=== PATIENT | female | born 1980 ===

== ENCOUNTER 2021-04-02 15:11 | Emergency (ER) | payer SELFPAY ==
[~2021-04-02 15:11] MED LIST: Amoxicillin/Clavulanate K 875-125 MG Tab ONE
[2021-04-02] MEDS: Bacitracin/Neomycin/Polymyxin B Oint 0.9 GM U/D Packet TOP ONE (15:27)
--- NOTE | 2021-04-02 15:33 | EDM.PDOC ---
ED HPI GENERAL MEDICAL PROBLEM - General Chief Complaint: Upper Extremity Injury/Pain Stated Complaint: cat scratch Time Seen by Provider: 04/02/21 15:21 Source of Information: Reports: Patient History Limitations: Reports: No Limitations - History of Present Illness INITIAL COMMENTS - FREE TEXT/NARRATIVE: jp is a 40 year old female who presents to ER with concerns of infection to her left thumb. Was scratched by her own cat on as gotten spooked by a dog. Has been washing it every 2-3 hours but today noted more swelling and purulent drainage coming from the area. Has more tenderness and redness now too. Hurts to bend and flex thumb but is able to do so. Unknown last tetanus. Onset: Gradual Duration: Day(s):, Getting Worse Location: Reports: Upper Extremity, Left Quality: Reports: Throbbing Severity: Mild Associated Symptoms: Reports: No Other Symptoms Treatments WATCH CASER: Reports: Aspirin, Dressing(s) Left Finger-Thumb Pain Score (Numeric/FACES): 3 - Related Data Allergies Allergy/AdvReac Type Severity Reaction Status Date / Time seafood Allergy Anaphylactic Uncoded 04/02/21 15:24 Shock Home Meds: Home Meds Amoxicillin/Clavulanate K [Augmentin 875-125 MG] 1 tab PO BID #16 tablet 04/02/21 [Rx] Past Medical History - Past Health History Medical/Surgical History: Denies Medical/Surgical History Social & Family History - Tobacco Use Tobacco Use Status *Q: Current Every Day Tobacco User Review of Systems - Review of Systems Review Of Systems: See Below Constitutional: Denies: Chills, Fever Eyes: Reports: No Symptoms Ears: Reports: No Symptoms Nose: Reports: No Symptoms Mouth/Throat: Reports: No Symptoms Respiratory: Reports: No Symptoms Cardiovascular: Reports: No Symptoms GI/Abdominal: Reports: No Symptoms Musculoskeletal: Reports: Hand Pain Skin: Reports: Wound Neurological: Reports: No Symptoms ED EXAM, GENERAL - Physical Exam Exam: See Below Exam Limited By: No Limitations General Appearance: Alert, WD/WN, No Apparent Distress Extremities: Normal Range of Motion, Normal Capillary Refill Neurological: Alert, Oriented Skin Exam: Wound/Incision (Has 3 cm linear scratch to left thumb at the distal joint. Has swelling, redness and drainage noted to the scratch area. Is tend er. Does have good flexion and extension of her digit.) Course - Vital Signs Last Recorded V/S: Last Vital Signs Temp 99.0 F 04/02/21 15:12 Pulse 91 04/02/21 15:12 Resp 16 04/02/21 15:12 BP 144/81 H 04/02/21 15:12 Pulse Ox 97 04/02/21 15:12 - Orders/Labs/Meds Orders: Active Orders 24 hr Category Date Time Status Vaccines to be Administered [RC] PER UNIT ROUTINE Care 04/02/21 15:27 Ordered Amoxicillin/Clavulanate K [Take Home: Amox/Clavulanate Med 04/02/21 15:27 Once 875-12, 2 Tab Pac] 2 packet PO ONETIME ONE Diphth,Pertuss(Acell),Tet Vac [Boostrix] Med 04/02/21 15:27 Once 0.5 ml IM .ONCE ONE Meds: Medications Discontinued Medications Generic Name Dose Route Start Last Admin Trade Name Freq PRN Reason Stop Dose Admin Neomycin/Polymyxin/Bacitracin 1 each 04/02/21 15:23 Bacitracin/Neomycin/Polymyxin B Oint 0.9 Gm U/D Packet TOP 04/02/21 15:24 ONETIME ONE Departure - Departure Time of Disposition: 15:32 Disposition: Home, Self-Care 01 Condition: Good Clinical Impression: Wound infection Cat scratch of left hand Qualifiers: Encounter type: initial encounter Qualified Code(s): S60.512A - Abrasion of left hand, initial encounter; W55.03XA - Scratched by cat, initial encounter - Discharge Information *PRESCRIPTION DRUG MONITORING PROGRAM REVIEWED*: No *COPY OF PRESCRIPTION DRUG MONITORING REPORT IN PATIENT NOE: No Prescriptions: Amoxicillin/Clavulanate K [Augmentin 875-125 MG] 1 tab PO BID #16 tablet Additional Instructions: 1. Soak hand or wash area often throughout the day 2. Triple antibiotic ointment to area daily for the next 3 days or more 3. Keep area clean and dry 4. Cover as needed 5. Augmentin 875 mg BID for 10 days 6. Tylenol or ibuprofen for fever or discomfort 7. Follow up for any worsening symptoms or concerns. Sepsis Event Note (ED) - Evaluation Sepsis Screening Result: No Definite Risk - Focused Exam Vital Signs: Vital Signs Temp Pulse Resp BP Pulse Ox 04/02/21 15:12 99.0 F 91 16 144/81 H 97 - My Orders Last 24 Hours: My Active Orders 04/02/21 15:27 Vaccines to be Administered [RC] PER UNIT ROUTINE Amoxicillin/Clavulanate K [Take Home: Amox/Clavulanate 875-12, 2 Tab Pac] 2 packet PO ONETIME ONE Diphth,Pertuss(Acell),Tet Vac [Boostrix] 0.5 ml IM .ONCE ONE - Assessment/Plan Last 24 Hours: My Active Orders 04/02/21 15:27 Vaccines to be Administered [RC] PER UNIT ROUTINE Amoxicillin/Clavulanate K [Take Home: Amox/Clavulanate 875-12, 2 Tab Pac] 2 packet PO ONETIME ONE Diphth,Pertuss(Acell),Tet Vac [Boostrix] 0.5 ml IM .ONCE ONE
[2021-04-02] MEDS: Diphtheria,Pertussis(Acell),Tetanus Vaccine 0.5 ML Syringe IM ONE (15:35)
[2021-04-02] MEDS: Take Home: Amoxicillin/Clavulanate K 875-125 MG Tab, 2 Tab Pack PO ONE (15:38)
== END 2021-04-02 15:45 | disposition home or self-care (01) ==
LOC: CC.ED 15:11
DX: S60.512A Abrasion of left hand, initial encounter (principal); L08.9 Local infection of the skin and subcutaneous tissue, unspecified; Z23 Encounter for immunization; Z91.013 Allergy to seafood; Z72.0 Tobacco use; W55.03XA Scratched by cat, initial encounter
CPT/HCPCS: 90471; 90715; 99282; A9270-GY